=== PATIENT | male | born 1990 | race Caucasian/White ===

== ENCOUNTER 2020-09-11 10:28 | Emergency (ER) | payer SELFPAY ==
[~2020-09-11] VITALS: Ht 175.3 cm; Wt 79.4 kg
[2020-09-11 11:34] LABS: BASOPHIL % 0.7 % (0.2-1.5); PLATELET COUNT 290 x10^3mcL (152-348); RED CELL DISTRIBUTION WIDTH 13.2 % (12.1-16.2)
[2020-09-11 11:39] LABS: CALCIUM 8.5 mg/dL (8.5-10.1); CARBON DIOXIDE 29.6 mmol/L (21-32); CHLORIDE SERUM 105 mmol/L (98-107); GFR1 > 60 mL/min; GLUCOSE SERUM 101 mg/dL (74-106); POTASSIUM SERUM 4.2 mmol/L (3.5-5.1); SODIUM SERUM 140 mmol/L (136-145)
[2020-09-11 11:43] LABS: ALBUMIN 4.2 g/dL (3.4-5.0); ALKALINE PHOSPHATASE 98 U/L (46-116); ALT/SGPT 67 U/L (16-63); AST/SGOT 28 U/L (15-37); BILIRUBIN TOTAL 0.3 mg/dL (0.20-1.00); CHOLESTEROL 188 mg/dL (<200); CHOLESTEROL/HDL RATIO 4.3; HDL CHOLESTEROL 44 mg/dL (40-60); MAGNESIUM 2.2 mg/dL (1.8-2.4); TOTAL PROTEIN, SERUM 7.4 g/dL (6.4-8.2); TRIGLYCERIDES 165 mg/dL (<150)
[2020-09-11 11:46] LABS: AMPHETAMINE QUAL UR NONE DETECTED (See below)
[2020-09-11 16:15] VITALS: BP 126/67
== END 2020-09-11 16:15 | disposition home or self-care (01) ==
LOC: ED 10:28
PROVIDERS: Emergency Medicine
DX: M54.30 Sciatica, unspecified side (principal)